=== PATIENT | male | born 1975 | race Caucasian/White ===

== ENCOUNTER 2019-09-18 15:40 | Emergency (ER) | payer OTHER ==
[~2019-09-18] VITALS: Ht 170.2 cm; Wt 93.0 kg
[2019-09-18 15:40] VITALS: BP 128/85
--- NOTE | 2019-09-18 16:20 | NUR ---
AMBULATED WITH STEADY GAIT SAYING THAT HE FEELS BETTER EVEN AFTER DR JEFFREY TOLD HIM THAT SHE IS CONCERNED BECAUSE HE HAS A SERIOUS INFECTION THAT COULD GET WORSE.HE HURRIEDLY WALKED TOWARDS THE DOOR SAYING GOOD BYE AT THE SAME TIME.
[2019-09-18] MEDS ORDERED: TDAP [DIPH/PERTUSSIS/TET] 0.5 ML VIAL IM ONE (16:30)
[2019-09-18] MEDS ORDERED: IBUPROFEN 600 MG TABLET PO ONE (16:30)
[2019-09-18] MEDS ORDERED: SULFAMETH/TRIMETH 800/160 MG 1 UDTAB TABLET PO ONE (16:30)
[2019-09-18] MEDS ORDERED: CEPHALEXIN MONOHYDRATE 500 MG CAPSULE PO ONE (16:30)
[2019-09-18] MEDS ORDERED: HYDROCODONE/APAP 5/325MG 1 EACH TABLET PO ONE (16:30)
== END 2019-09-18 16:25 | disposition left against medical advice (07) ==
LOC: ER 15:40
DX: S91.301A Unspecified open wound, right foot, initial encounter (principal); S90.421A Blister (nonthermal), right great toe, initial encounter; L08.9 Local infection of the skin and subcutaneous tissue, unspecified; X58.XXXA Exposure to other specified factors, initial encounter; Y93.89 Activity, other specified; Y92.89 Other specified places as the place of occurrence of the external cause; Y99.8 Other external cause status